=== PATIENT | female | born 1990 | race Caucasian/White ===

== ENCOUNTER 2019-11-04 21:01 | Emergency (ER) | payer OTHER ==
[~2019-11-04] VITALS: Ht 162.6 cm; Wt 77.3 kg
[2019-11-04] MEDS ORDERED: PREN-61 PO (21:35)
[2019-11-04 22:50] VITALS: BP 102/57
== END 2019-11-04 23:00 | disposition home or self-care (01) ==
LOC: EMS 21:04
DX: J06.9 Acute upper respiratory infection, unspecified (principal)